=== PATIENT | female | born 1965 | race American Indian/Alaskan Native ===

== ENCOUNTER 2016-04-28 01:48 | Emergency (ER) | payer BC ==
[2016-04-28 03:22] LABS: Basophils % (Auto) 0.3 % (0.0-1.8); Eosinophils % (Auto) 0.3 % (0.0-4.3); Hematocrit 39.8 % (30.3-42.9); Hemoglobin 12.9 gm/dl (10.1-14.3); Mean Corpuscular HGB Conc 33 % (30-34); Mean Corpuscular Hemoglobin 27 pg (28-32); Mean Corpuscular Volume 82 fl (79-97); Platelet Count 352 K/mm3 (140-440); Red Blood Count 4.87 M/mm3 (3.65-5.03); Red Cell Distribution Width 13.8 % (13.2-15.2); White Blood Count 10.8 K/mm3 (4.5-11.0)
[2016-04-28 03:48] LABS: Alanine Aminotransferase 8 units/L (7-56); Albumin 4.1 g/dL (3.9-5); Albumin/Globulin Ratio 1.1 %; Alkaline Phosphatase 90 units/L (35-129); BUN/Creatinine Ratio 18.57; Bilirubin,Total 0.3 mg/dL (0.1-1.2); Blood Urea Nitrogen 13 mg/dL (7-17); Calcium 8.8 mg/dL (8.4-10.2); Carbon Dioxide 21 mmol/L (22-30); Chloride 100.7 mmol/L (98-107); Glucose 123 mg/dL (65-100); Lipase 11 units/L (13-60); Potassium 4.3 mmol/L (3.6-5.0); Sodium 136 mmol/L (137-145)
[2016-04-28 03:49] LABS: Anion Gap 19 mmol/L
[2016-04-28] MEDS ORDERED: NACL 0.9% 1000 ML 1,000 ML IV ONE (08:30)
[2016-04-28] MEDS ORDERED: ZOFRAN IV ONE (08:30)
[2016-04-28] MEDS ORDERED: MORPHINE IV ONE (09:41)
[2016-04-28 10:41] VITALS: BP 124/52
--- NOTE | 2016-04-28 11:53 | Emergency Department Report ---
HPI - General Chief Complaint: Abdominal Pain Time Seen by Provider: 04/28/16 09:40 - HPI HPI: The patient's for 50-year-old female who presents for evaluation of abdominal pain. The patient reports generalized cramping abdominal pain since yesterday afternoon, moderate in severity, exacerbated with retching, and associated with nausea, multiple episodes of nonbilious, nonbloody emesis, and multiple episodes of loose watery stools. The patient denies fever, chest pain, dyspnea, diarrhea, blood in the stool, dark tarry stool, dysuria, hematuria, flank pain, vaginal bleeding, vaginal discharge, inability to pass flatus. ED Past Medical Hx - Past Medical History Previous Medical History?: No - Surgical History Past Surgical History?: Yes Additional Surgical History: tubal ligation - Social History Smoking Status: Never Smoker Substance Use Type: None - Medications Home Medications: Home Medications Medication Instructions Recorded Confirmed Last Taken Type HYDROcodone/APAP 7.5-325 [[place] 1 each PO Q8HR PRN #10 tablet 04/28/16 Unknown Rx 7.5-325 mg TAB] Ondansetron [Zofran TAB] 4 mg PO Q8HR PRN #14 tablet 04/28/16 Unknown Rx ED Review of Systems ROS: Stated complaint: ABD PAIN/DIARRHEA Other details as noted in HPI Constitutional: denies: fever ENT: denies: throat or neck pain Respiratory: denies: cough, shortness of breath Cardiovascular: denies: chest pain Endocrine: denies unexplained weight loss or gain Gastrointestinal: reports: abdominal pain, nausea, diarrhea Genitourinary: denies: dysuria Musculoskeletal: denies: leg swelling Skin: denies: rash Neurological: denies: headache Hematological/Lymphatic: denies: easy bleeding or easy bruising Psych: denies sadness or hopelessness Physical Exam - Physical Exam Vital Signs: Vital Signs 04/28/16 04/28/16 04/28/16 02:26 06:34 07:53 Temperature 99.8 F H 99.3 F 98.6 F Pulse Rate 117 H 88 94 H Respiratory 16 18 Rate Blood Pressure 143/83 133/82 Blood Pressure 149/95 [Right] O2 Sat by Pulse 96 96 96 Oximetry 04/28/16 04/28/16 04/28/16 08:53 09:59 10:40 Temperature Pulse Rate 81 84 74 Respiratory 16 16 16 Rate Blood Pressure Blood Pressure 131/71 104/48 124/52 [Right] O2 Sat by Pulse 97 96 98 Oximetry Physical Exam: General: well-nourished, well-developed, no acute distress Head: Normocephalic, atraumatic Eyes: normal sclera ENT: Mucous membranes are pale and dry Neck: No neck stiffness, no cervical adenopathy Respiratory: Breath sounds equal bilaterally, no wheezing, rales, or rhonchi Cardio: S1 and S2 present, no murmurs, rubs, gallops, capillary refill is delayed Abdomen: Normoactive bowel sounds, soft abdomen, generalized tenderness to palpation present, no rigidity, no guarding or rebound tenderness Chest WALL/Back: No tenderness to palpation of the chest wall, no CVA tenderness with percussion Musc: No pitting edema Skin: No rash Neuro: no facial drooping, normal speech Psych: Normal affect ED Course Vital Signs 04/28/16 04/28/16 04/28/16 02:26 06:34 07:53 Temperature 99.8 F H 99.3 F 98.6 F Pulse Rate 117 H 88 94 H Respiratory 16 18 Rate Blood Pressure 143/83 133/82 Blood Pressure 149/95 [Right] O2 Sat by Pulse 96 96 96 Oximetry 04/28/16 04/28/16 04/28/16 08:53 09:59 10:40 Temperature Pulse Rate 81 84 74 Respiratory 16 16 16 Rate Blood Pressure Blood Pressure 131/71 104/48 124/52 [Right] O2 Sat by Pulse 97 96 98 Oximetry ED Medical Decision Making - Lab Data Result diagrams: 04/28/16 02:55 04/28/16 02:55 - Medical Decision Making The patient was seen and examined by myself. The patient is placed on a monitoring manager and continuous pulse ox. On initial evaluation, the patient was found to be in no distress. Evaluation orders are placed. IV access is established and the patient is given 1 L normal saline fluid bolus and Zofran for nausea, and IV morphine for pain. Lab results were non-concerning including WBC, hemoglobin, hematocrit, electrolytes, renal function, LFTs, lipase, and urinalysis. The patient was reevaluated and reported that their symptoms were markedly improved. The patient is stable for discharge with outpatient follow- up. The patient is given follow-up and return instructions. The patient expressed understanding and agreed with the plan. The patient is discharged in stable condition. Critical care attestation.: If time is entered above; I have spent that time in minutes in the direct care of this critically ill patient, excluding procedure time. ED Disposition Clinical Impression: Acute generalized abdominal pain, Dehydration Disposition: DISCHARGED TO HOME OR SELFCARE Is pt being admited?: No Does the pt Need Aspirin: No Condition: Stable Instructions: Abdominal Pain (ED), Gastroenteritis (ED), Acute Nausea and Vomiting (ED), Acute Abdominal Pain (ED) Referrals: PRIMARY CARE, [Primary Care Provider] - 3-5 Days Time of Disposition: 10:53
== END 2016-04-28 12:28 | disposition home or self-care (01) ==
LOC: ED 01:48
DX: E86.0 Dehydration (principal); R10.84 Generalized abdominal pain; Z98.51 Tubal ligation status
CPT/HCPCS: 36415; 80053; 83690; 84703; 85025; 96361; 96374; 96375; 99284; J2270; J2405; J7030